=== PATIENT | male | born 1970 | race Caucasian/White ===

== ENCOUNTER → 2020-07-03 | Outpatient (CLI) | payer OTHER ==
[~2020-07-03] MED LIST: ACID CONTROL150 MG PO; ALBUTEROL1.25 MG/3 INH; AMOXICILLIN875 MG PO; ASPIR-LOW81 MG PO; ASPIRIN EC325 MG PO; ATORVASTATIN CA40 MG PO; AUGMENTIN 875-1 EACH PO; BACTRIM DS TAB1 EACH PO; BOOST HIGH PRO237 ML PO; BREO ELLIPTA 11 EACH INH; COLACE100 MG PO; DILAUDID 4 MG TA4 MG PO; DOXYCYCLINE HY100 M2 PO; DULERA 200 MCG8.8 GM INH; FLUZONE QU60 MCG/015 IM; ISOSORBIDE DINI30 MG PO; KEFLEX500 MG PO; KLOR-CON M1010 MEQ PO; LASIX20 MG PO; LEVAQUIN750 MG PO; LOPRESSOR 25 MG25 MG PO; METOCLOPRAMIDE10 MG PO; MORPHINE SULFA100 M1 PO; MS CONTIN TAB S60 MG PO; MYCOSTATIN100000 UTS PO; NEURONTIN 300300 MG PO; NEURONTIN300 MG PO; NITROSTAT0.4 MG SL; NORCO 5-325 TA1 EACH PO; PERCOCET 5-3251 EACH PO; PERCOCET 5/325 T1 EA PO; PROTONIX40 MG PO; RANEXA500 MG PO; RANITIDINE HCL300 MG PO; SINGULAIR10 MG PO; ULTRAM50 MG PO; VENTOLIN HFA 66.7 GM INH; XANAX0.5 MG PO; ZOLOFT25 MG PO
[2020-07-03 09:04] LABS: HEMOGLOBIN 15.1 gm/dl (14.0-17.5); RED BLOOD COUNT 4.74 M/UL (4.20-5.50); WHITE BLOOD COUNT 6.7 K/UL (4.5-11.0)
[2020-07-03 09:59] LABS: BUN/CREATININE RATIO 18 (0-10)
== END ==
LOC: CT 08:36
PROVIDERS: Internal Medicine Hematology & Oncology
DX: C7A.1 Malignant poorly differentiated neuroendocrine tumors (principal); C77.2 Secondary and unspecified malignant neoplasm of intra-abdominal lymph nodes; C78.7 Secondary malignant neoplasm of liver and intrahepatic bile duct; C7A.02 Malignant carcinoid tumors of the appendix, large intestine, and rectum; R59.0 Localized enlarged lymph nodes
CPT/HCPCS: 36415; 71260; 80053; 82378; 85025; Q9967

== ENCOUNTER 2020-07-27 12:34 | Emergency (ER) | payer OTHER ==
[~2020-07-27 12:34] MED LIST changes: -AUGMENTIN 875-1 EACH PO; -BOOST HIGH PRO237 ML PO; -DILAUDID 4 MG TA4 MG PO; -MORPHINE SULFA100 M1 PO; -MS CONTIN TAB S60 MG PO; -MYCOSTATIN100000 UTS PO; -NEURONTIN300 MG PO; -XANAX0.5 MG PO
[2020-07-27 13:44] LABS: RED BLOOD COUNT 4.44 M/UL (4.20-5.50); WHITE BLOOD COUNT 5.9 K/UL (4.5-11.0)
[2020-07-27 14:04] LABS: BUN/CREATININE RATIO 8 (0-10)
[2020-07-27] MEDS ORDERED: AUGMENTIN 875-1 EACH PO (15:43)
== END 2020-07-27 16:00 | disposition home or self-care (01) ==
LOC: ER1 12:34
PROVIDERS: Physician Assistant
DX: R10.32 Left lower quadrant pain (principal); M54.9 Dorsalgia, unspecified; I10 Essential (primary) hypertension; Z85.038 Personal history of other malignant neoplasm of large intestine; Z85.89 Personal history of malignant neoplasm of other organs and systems; Z88.1 Allergy status to other antibiotic agents
CPT/HCPCS: 80053; 81001; 82150; 83690; 85025; 96374; 96375; 99284; J1170; J2270; J2405; Q9967

== ENCOUNTER 2020-08-08 14:40 | Emergency (ER) | payer OTHER ==
[~2020-08-08 14:40] MED LIST changes: +AUGMENTIN 875-1 EACH PO
[2020-08-08 15:34] LABS: HEMOGLOBIN 13.6 gm/dl (14.0-17.5); RED BLOOD COUNT 4.42 M/UL (4.20-5.50); WHITE BLOOD COUNT 6.5 K/UL (4.5-11.0)
[2020-08-08 16:01] LABS: BUN/CREATININE RATIO 20 (0-10)
== END 2020-08-09 00:45 | disposition home or self-care (01) ==
LOC: ER1 14:40
PROVIDERS: Student in an Organized Health Care Education/Training Program
DX: G89.3 Neoplasm related pain (acute) (chronic) (principal); R10.9 Unspecified abdominal pain; J44.9 Chronic obstructive pulmonary disease, unspecified; F17.200 Nicotine dependence, unspecified, uncomplicated; I11.9 Hypertensive heart disease without heart failure; Z85.038 Personal history of other malignant neoplasm of large intestine; Z79.899 Other long term (current) drug therapy; Z88.1 Allergy status to other antibiotic agents
CPT/HCPCS: 80053; 81001; 82550; 82553; 83874; 84484; 85025; 96374; 96375; 96376; 99284; J1170; J2270; J2405; Q9967

== ENCOUNTER 2020-08-23 10:44 | Emergency (ER) | payer OTHER ==
[2020-08-23 12:55] LABS: HEMOGLOBIN 12.8 gm/dl (14.0-17.5); RED BLOOD COUNT 4.37 M/UL (4.20-5.50)
[2020-08-23 13:15] LABS: BUN/CREATININE RATIO 20 (0-10)
== END 2020-08-23 17:07 | disposition home or self-care (01) ==
LOC: ER1 10:44
PROVIDERS: Physician Assistant Medical
DX: G89.3 Neoplasm related pain (acute) (chronic) (principal); R10.9 Unspecified abdominal pain; J90 Pleural effusion, not elsewhere classified; J44.9 Chronic obstructive pulmonary disease, unspecified; C18.9 Malignant neoplasm of colon, unspecified; Z95.1 Presence of aortocoronary bypass graft; F17.210 Nicotine dependence, cigarettes, uncomplicated; Z79.899 Other long term (current) drug therapy; Z88.8 Allergy status to other drugs, medicaments and biological substances
CPT/HCPCS: 71045; 80053; 81001; 83605; 83690; 83880; 85025; 96374; 96375; 96376; 99284; J1170; J2270; J2405; Q9967

== ENCOUNTER 2020-08-31 11:05 | Inpatient (IN) | payer MEDICARE, OTHER ==
[~2020-08-31] VITALS: Ht 185.4 cm; Wt 85.0 kg
[2020-08-31 12:27] LABS: HEMOGLOBIN 12.9 gm/dl (14.0-17.5); RED BLOOD COUNT 4.59 M/UL (4.20-5.50); WHITE BLOOD COUNT 7.6 K/UL (4.5-11.0)
[2020-08-31 13:02] LABS: BUN/CREATININE RATIO 32 (0-10)
[2020-08-31] MEDS ORDERED: MORPHINE SULFA100 M1 PO (19:49)
[2020-08-31] MEDS ORDERED: DILAUDID 4 MG TA4 MG PO (19:49)
[2020-08-31] MEDS ORDERED: NEURONTIN300 MG PO (19:50)
[2020-09-01 06:15] LABS: BUN/CREATININE RATIO 30 (0-10)
[2020-09-01 06:18] LABS: HEMOGLOBIN 12.1 gm/dl (14.0-17.5); RED BLOOD COUNT 4.46 M/UL (4.20-5.50); WHITE BLOOD COUNT 6.1 K/UL (4.5-11.0)
[2020-09-02 02:53] LABS: HEMOGLOBIN 11.4 gm/dl (14.0-17.5); RED BLOOD COUNT 4.15 M/UL (4.20-5.50)
[2020-09-02 04:05] LABS: BUN/CREATININE RATIO 29 (0-10)
[2020-09-02] MEDS ORDERED: DOXYCYCLINE HY100 M2 PO (16:14)
[2020-09-02] MEDS ORDERED: XANAX0.5 MG PO (16:14)
[2020-09-02] MEDS ORDERED: MORPHINE SULFA100 M1 PO (16:14)
[2020-09-02] MEDS ORDERED: MS CONTIN TAB S60 MG PO (16:14)
[2020-09-02] MEDS ORDERED: DILAUDID 4 MG TA4 MG PO (16:14)
== END 2020-09-02 18:28 | disposition home health service (06) | DRG 947 ==
LOC: ER1 11:05 → MED SURG 4 18:29 → CDU 18:29 → MED SURG 4 09-01 00:10
PROVIDERS: Family Medicine; Internal Medicine; ADMIT Internal Medicine
DX: G89.3 Neoplasm related pain (acute) (chronic) (principal); J69.0 Pneumonitis due to inhalation of food and vomit; C7A.1 Malignant poorly differentiated neuroendocrine tumors; C78.6 Secondary malignant neoplasm of retroperitoneum and peritoneum; E87.1 Hypo-osmolality and hyponatremia; C78.7 Secondary malignant neoplasm of liver and intrahepatic bile duct; R19.7 Diarrhea, unspecified; Z20.822 Contact with and (suspected) exposure to COVID-19; I25.10 Atherosclerotic heart disease of native coronary artery without angina pectoris; I10 Essential (primary) hypertension; F17.210 Nicotine dependence, cigarettes, uncomplicated; I95.9 Hypotension, unspecified; B02.9 Zoster without complications; J44.9 Chronic obstructive pulmonary disease, unspecified; Z87.442 Personal history of urinary calculi; Z93.2 Ileostomy status; Z90.49 Acquired absence of other specified parts of digestive tract; Z82.49 Family history of ischemic heart disease and other diseases of the circulatory system; Z88.1 Allergy status to other antibiotic agents; Z95.1 Presence of aortocoronary bypass graft; Z79.899 Other long term (current) drug therapy
CPT/HCPCS: 0240U; 36415; 71045; 80053; 81001; 83605; 83690; 85025; 85027; 87040; 87045; 87046; 87449; 93005; 94664; 96374; 96375; 96376; 99285; G0378; J1100; J1170; J1650; J2185; J2270; J2405; J7030; Q9967

== ENCOUNTER 2020-09-05 23:28 | Emergency (ER) | payer MEDICARE, OTHER ==
[~2020-09-05 23:28] MED LIST changes: +DILAUDID 4 MG TA4 MG PO; +MORPHINE SULFA100 M1 PO; +MS CONTIN TAB S60 MG PO; +NEURONTIN300 MG PO; +XANAX0.5 MG PO
[2020-09-06 04:17] LABS: HEMOGLOBIN 13.2 gm/dl (14.0-17.5); RED BLOOD COUNT 4.78 M/UL (4.20-5.50); WHITE BLOOD COUNT 8.2 K/UL (4.5-11.0)
[2020-09-06 04:36] LABS: BUN/CREATININE RATIO 45 (0-10)
[2020-09-06] MEDS ORDERED: MYCOSTATIN100000 UTS PO (04:56)
[2020-09-06] MEDS ORDERED: BOOST HIGH PRO237 ML PO (04:58)
== END 2020-09-06 05:52 | disposition home or self-care (01) ==
LOC: ER1 23:28
PROVIDERS: Physician Assistant
DX: E86.0 Dehydration (principal); C18.9 Malignant neoplasm of colon, unspecified; R00.0 Tachycardia, unspecified; B37.0 Candidal stomatitis; J44.9 Chronic obstructive pulmonary disease, unspecified; Z95.1 Presence of aortocoronary bypass graft; Z91.012 Allergy to eggs; F17.210 Nicotine dependence, cigarettes, uncomplicated
CPT/HCPCS: 80053; 81001; 82550; 82553; 83874; 84484; 85025; 99284